=== PATIENT | female | born 1980 | race Two or more races ===

== ENCOUNTER 2017-03-14 10:41 | Emergency (ER) | payer BC ==
--- NOTE | 2017-03-14 10:52 | ER Document Report ---
ED Medical Screen (RME) - General Stated Complaint: WEAKNESS Time seen by provider: 10:51 Mode of Arrival: Ambulatory Information source: Patient - HPI Patient complains to provider of: left-sided facial droop Onset: This morning - 7 AM Onset/Duration: Sudden Quality of pain: No pain Associated Symptoms: None Exacerbated by: Denies Relieved by: Denies Similar symptoms previously: No Recently seen / treated by doctor: No Notes: 03/14/17 10:51 Patient is a 36-year-old female with no past medical history who presents to the emergency room complaining of left-sided facial droop, shows reports that her tongue deviates to the left side which he does on exam, she denies any extremity weakness, no headache, no fevers, no vision changes, no chest pain or shortness of breath, no history of similar symptoms previously, no head injury
[2017-03-14 11:15] LABS: ABSOLUTE BASOPHILS # (AUTO) 0.1 10^3/uL (0.0-0.2); ABSOLUTE EOSINOPHILS # (AUTO) 0.3 10^3/uL (0.0-0.6); ABSOLUTE LYMPHOCYTES (AUTO) 2.2 10^3/uL (0.5-4.7); ABSOLUTE MONOCYTES (AUTO) 0.5 10^3/uL (0.1-1.4); ABSOLUTE NEUT (AUTO) 6.1 10^3/uL (1.7-8.2); BASOPHILS % (AUTO) 0.7 % (0-2); EOSINOPHILS % (AUTO) 3.5 % (0-6); HEMATOCRIT 34.5 % (36.0-47.0); HEMOGLOBIN 11.5 g/dL (12.0-15.5); LYMPHOCYTES % (AUTO) 24.1 % (13-45); MEAN CORPUSCULAR HEMOGLOBIN 25.3 pg (27.0-33.4); MEAN CORPUSCULAR HGB CONC 33.3 g/dL (32.0-36.0); MEAN CORPUSCULAR VOLUME 76 fl (80-97); MONOCYTES % (AUTO) 5.7 % (3-13); RED BLOOD COUNT 4.53 10^6/uL (3.72-5.28); RED CELL DISTRIBUTION WIDTH 14.9 % (11.5-14.0); WHITE BLOOD COUNT 9.3 10^3/uL (4.0-10.5)
[2017-03-14 11:17] LABS: PARTIAL THROMBOPLASTIN TIME 33.3 SEC (23.5-35.8)
[2017-03-14 11:21] LABS: PROTHROMBIN TIME 13.4 SEC (11.4-15.4)
[2017-03-14 11:35] LABS: ALANINE AMINOTRANSFERASE 28 U/L (9-52); ALBUMIN 3.8 g/dL (3.5-5.0); ALKALINE PHOSPHATASE 69 U/L (38-126); ANION GAP 14 (5-19); ASPARTATE AMINO TRANSFERASE 19 U/L (14-36); BILIRUBIN,DIRECT 0.3 mg/dL (0.0-0.4); BILIRUBIN,TOTAL 0.7 mg/dL (0.2-1.3); BLOOD UREA NITROGEN 10 mg/dL (7-20); CARBON DIOXIDE 21 mmol/L (22-30); CHLORIDE 110 mmol/L (98-107); CREATINE KINASE 46 U/L (30-135); CREATININE RESULT 0.64 mg/dL (0.52-1.25); GLUCOSE 108 mg/dL (75-110); POTASSIUM 3.9 mmol/L (3.6-5.0); SODIUM 145.3 mmol/L (137-145); TOTAL PROTEIN 7.3 g/dL (6.3-8.2)
[2017-03-14 12:04] LABS: CREATINE KINASE MB < 0.22 ng/mL (<4.55); TROPONIN I < 0.012 ng/mL
--- NOTE | 2017-03-14 12:36 | ER Document Report ---
ED General - General Chief Complaint: Weakness Stated Complaint: WEAKNESS Time seen by provider: 11:00 Mode of Arrival: Ambulatory Information source: Patient Notes: 36-year-old female who noticed a sensation of fullness in her left face about 7: 00 this morning. Patient says she woke up at 6 and is not sure if she had any abnormal sensation then. She reports over the course of the morning she began noticing that she had trouble with liquids dribbling out of her mouth and coworkers thought her right face seemed to be drooping of the patient had the impression it was her left side that was week and she presents to emergency department. Patient recalls a prior history of symptoms like this. She denies fever, chills, nausea, vomiting, cough, shortness of breath, visual disturbances , difficulty with speech or swallowing, pain numbness weakness to any extremity , dizziness, or syncope. She doesn't recall being bitten a tick spiders or snakes and denies any rashes. Physical Exam: General: Alert, appears well. HEENT: Normocephalic. Atraumatic. PERRLA. Extraocular movements intact. Discs sharp no papilledema sclerae anicteric and panic membranes and canals clear Oropharynx clear. No rashes involving ear or nose Neck: Supple. Non-tender. No carotid bruits no JVD Respiratory: No respiratory distress. Clear and equal breath sounds bilaterally. Cardiovascular: Regular rate and rhythm. No murmur PMI not displaced Abdominal: Normal Inspection. Soft, non-tender. No distension. Normal Bowel Sounds. Back: Non-tender. No deformity or step off. Extremities: All extremities warm to plus pulses no cyanosis no edema Neurological: Visual mejia intact to each eye in all 4 quadrants patient reports intact sensation to face bilaterally. The patient has minimal tongue deviation to the left. The patient has droop to the right lower face and weakness with closing her right eye. Cranial nerves II through XII are otherwise intact bilaterally Strength 5/5 throughout. Sensation intact to light touch. Normal cognition. AAOx4. Normal speech. Cerebellar function is intact by finger to nose test bilaterally Psychological: Normal affect. Normal Mood. Skin: Warm. Dry. Normal color. TRAVEL OUTSIDE OF THE [place] IN LAST 30 DAYS: No - Related Data Allergies/Adverse Reactions: No Known Allergies Allergy (Verified 03/14/17 11:40) Past Medical History - General Information source: Patient - Social History Smoking Status: Never Smoker Chew tobacco use (# tins/day): No Frequency of alcohol use: None Drug Abuse: None Family History: None Patient has suicidal ideation: No Patient has homicidal ideation: No Renal/ Medical History: Denies: Hx Peritoneal Dialysis Review of Systems - Review of Systems Constitutional: denies: Chills, Fever EENT: denies: Ear pain, Nose pain, Throat pain, Mouth pain Cardiovascular: denies: Chest pain, Palpitations, Dyspnea, Syncope Respiratory: denies: Cough, Short of breath Gastrointestinal: denies: Abdominal pain, Diarrhea, Nausea, Vomiting Genitourinary: denies: Burning Female Genitourinary: denies: Musculoskeletal: denies: Back pain, Muscle pain Skin: denies: Rash Hematologic/Lymphatic: denies: Swollen glands Neurological/Psychological: See HPI Physical Exam - Vital signs Vitals: Pulse Resp BP Pulse Ox 70 14 112/59 L 99 03/14/17 10:51 03/14/17 10:51 03/14/17 10:51 03/14/17 10:51 Course - Re-evaluation Re-evalutation: 03/14/17 12:37 Patient subjective findings on exam are upper and lower facial weakness on the right though she had a sensation of problems on the left. I reevaluated this with nursing staff and they also appreciate a right-sided facial weakness. Not sure what to make of the tongue deviation to the left but this is minimal. Patient has no history of tick bite with think Lyme disease is in the differential. This examiner's not consistent with a CVA. I will place the patient in 2 weeks course of doxycycline as Lyme disease here is a send out for testing. He also be placed on 5 days of prednisone and will [facility] 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 03/14/17 12:39 - Vital Signs Vital signs: Temp Pulse Resp BP Pulse Ox 99.3 F 80 18 119/71 100 03/14/17 10:53 03/14/17 11:30 03/14/17 11:30 03/14/17 11:30 03/14/17 11:30 - Laboratory Result Diagrams: 03/14/17 11:00 03/14/17 11:00 Laboratory results interpreted by me: 03/14/17 03/14/17 11:00 11:00 Hgb 11.5 L Hct 34.5 L MCV 76 L MCH 25.3 L RDW 14.9 H Sodium 145.3 H Chloride 110 H Carbon Dioxide 21 L - Diagnostic Test Radiology reviewed: Image reviewed, Reports reviewed - EKG Interpretation by Me Additional EKG results interpreted by me: 03/14/17 12:37 EKG reviewed by myself shows sinus rhythm at 67 with no acute changes Discharge - Discharge Clinical Impression: Freitas's palsy Condition: Stable Disposition: HOME, SELF-CARE Prescriptions: Doxycycline Hyclate 100 mg PO BID #20 capsule Prednisone 50 mg PO QAM #5 tablet Forms: Return to Work Referrals: [facility] [Provider Group] - Follow up in 1 week
[2017-03-14 13:19] VITALS: BP 120/72
--- NOTE | 2017-03-14 19:09 | EKG REPORT ---
SEVERITY:- BORDERLINE ECG - SINUS RHYTHM INFERIOR Q WAVES, PROBABLY NORMAL VARIATION : Confirmed by: Avinash Johnson MD 14-Mar-2017 19:08:32
[2017-03-15 13:41] LABS: LYME DISEASE IGG AND IGM AB <0.91 ISR (0.00-0.90)
== END 2017-03-14 13:17 | disposition home or self-care (01) ==
LOC: ER 10:41
DX: G51.0 Bell's palsy (principal)
CPT/HCPCS: 36415; 70450; 71010; 80053; 82550; 82553; 84484; 85025; 85610; 85730; 86617; 86618; 93005; 93010; 99285